=== PATIENT | male | born 1950 | race Caucasian/White ===

== ENCOUNTER 2017-03-05 07:31 | Day surgery (SDC) | payer MEDICARE ==
[2017-03-05] MEDS ORDERED: Sodium Chloride 0.9% 1,000 ML IV SCH (08:00)
[2017-03-05] MEDS ORDERED: fentaNYL 100 MCG/2 ML SDV ONE (09:15)
[2017-03-05] MEDS ORDERED: Propofol 200 MG/20 ML SDV ONE (09:15)
[2017-03-05] MEDS ORDERED: Midazolam 1 MG/ML 2 ML SDV ONE (09:16)
--- NOTE | 2017-03-05 11:14 | OR ---
DATE OF PROCEDURE: 03/05/2017 PROCEDURE: Colonoscopy. FINDINGS: Sigmoid colon polyp, less than 5 mm, completely removed using cold biopsy forceps. COMPLICATIONS: None. TIERCE FILLER: None. ANESTHESIA: MAC. PREOPERATIVE DIAGNOSIS: Screening colonoscopy. POSTOPERATIVE DIAGNOSIS: Screening colonoscopy. RISKS: Risks, benefits, alternatives, and limitations including, but not limited to infection, bleeding, and perforation were explained to the patient, who wished to proceed. PROCEDURE IN DETAIL: The patient was placed in left lateral decubitus position. A digital rectal exam was performed without abnormality. The scope was introduced and advanced atraumatically to the ileocecal valve. The scope was brought back through the ascending, transverse, descending colon, and retroflexed. The only abnormality was the polyp. No diverticulosis. No masses. No colitis. The prep was moderately acceptable. No abnormalities on retroflexion. The patient tolerated the procedure well. Morgan Khan MD /[id number]
== END 2017-03-05 10:58 | disposition home or self-care (01) ==
LOC: JP.SDS 07:31
PROVIDERS: ATTEND Surgery
DX: Z12.11 Encounter for screening for malignant neoplasm of colon (principal); D12.5 Benign neoplasm of sigmoid colon; I10 Essential (primary) hypertension; J45.909 Unspecified asthma, uncomplicated; K21.9 Gastro-esophageal reflux disease without esophagitis; E66.9 Obesity, unspecified; Z88.0 Allergy status to penicillin
CPT/HCPCS: 45380; 88305; J2250; J2704; J3010; J7040; J7030